=== PATIENT | male | born 1935 | race Two or more races ===

== ENCOUNTER 2023-11-09 11:35 | Inpatient (IN) | payer MEDICARE, OTHER ==
[~2023-11-09] VITALS: Ht 167.6 cm; Wt 68.0 kg
[2023-11-09 12:57] LABS: ALANINE AMINOTRANSFERASE 12 U/L (12-78); ALBUMIN 3.7 g/dL (3.4-5.0); ALKALINE PHOSPHATASE 53 U/L (46-116); ASPARTATE AMINOTRANSFERASE 16 U/L (15-37); BILIRUBIN,DIRECT 0.1 mg/dL (0.0-0.2); BILIRUBIN,TOTAL 0.4 mg/dL (0.2-1.0); CALCIUM, SERUM 9.4 mg/dL (8.5-10.1); CARBON DIOXIDE 32 mmol/L (21-32); CHLORIDE 104 mmol/L (98-107); CREATININE 1.2 mg/dL (0.6-1.3); GLUCOSE 126 mg/dL (74-106); POTASSIUM 4.3 mmol/L (3.5-5.1); SODIUM SERUM 141 mmol/L (136-145); TOTAL PROTEIN, SERUM 7.6 g/dL (6.4-8.2); UREA NITROGEN, BLOOD 36 mg/dL (7-18)
[2023-11-09 12:58] LABS: BASOPHILS % (AUTO) 0.4 % (0.0-2.0); EOSINOPHILS # (AUTO) 0.1 K/uL (0.0-0.7); HEMATOCRIT 40 % (39-51); HEMOGLOBIN 13.1 g/dL (13.5-17.5); LYMPHOCYTES # (AUTO) 1.4 K/uL (0.8-4.8); LYMPHOCYTES % (AUTO) 21.9 % (20.0-44.0); MEAN CORPUSCULAR HEMOGLOBIN 31 PG (26.0-33.0); MEAN CORPUSCULAR HGB CONC 33 g/dl (31.0-36.0); MEAN CORPUSCULAR VOLUME 93 fL (80-96); MONOCYTES # (AUTO) 0.6 K/uL (0.1-1.30); MONOCYTES % (AUTO) 9.3 % (2.0-12.0); NEUTROPHILS # (AUTO) 4.4 K/uL (1.8-8.9); NEUTROPHILS % (AUTO) 66.4 % (43.0-81.0); PLATELET COUNT (AUTO) 192 K/uL (150-450); RED BLOOD CELL COUNT(AUTO) 4.31 MIL/uL (4.5-6.0); RED CELL DISTRIBUTION WIDTH 14.4 % (11.5-15.0); WHITE BLOOD COUNT (AUTO) 6.6 K/uL (4.3-11.0)
[2023-11-09 13:05] LABS: ACETAMINOPHEN <10 ug/ml (10-30); ALCOHOL, BLOOD < 3 mg/dL (0-10); SALICYLATE 0.8 mg/dL (2.8-20.0)
[2023-11-09] MEDS ORDERED: SITA100T PO (14:06)
[2023-11-09] MEDS ORDERED: AMLO5TAB4 PO (14:06)
[2023-11-09] MEDS ORDERED: MONT10TA22 PO (14:06)
[2023-11-09] MEDS ORDERED: CALC-15 PO (14:06)
[2023-11-09] MEDS ORDERED: DIVA125T32 PO (14:06)
[2023-11-09] MEDS ORDERED: NA P133E RC (14:06)
[2023-11-09] MEDS ORDERED: GLYC-30 RC (14:06)
[2023-11-09] MEDS ORDERED: METF500T PO (14:06)
[2023-11-09] MEDS ORDERED: TAMS-12 PO (14:06)
[2023-11-09] MEDS ORDERED: ACET-868 PO (14:06)
[2023-11-09] MEDS ORDERED: DIVA-76 PO (14:06)
[2023-11-09] MEDS ORDERED: ACET650S11 RC (14:06)
[2023-11-09 14:20] LABS: APPEARANCE,URINE CLEAR (CLEAR); BILIRUBIN,URINE NEGATIVE (NEGATIVE); BLOOD, URINE TRACE-INTA Ery/uL (NEGATIVE); COLOR,URINE YELLOW (YELLOW); KETONES,URINE NEGATIVE (NEGATIVE); LEUKOCYTE ESTERASE ,URINE NEGATIVE (NEGATIVE); NITRITE, URINE NEGATIVE (NEGATIVE); PROTEIN,URINE NEGATIVE (NEGATIVE); UGLUCOSE NEGATIVE (NEGATIVE)
[2023-11-09 14:31] LABS: ADD URINE CULTURE NO; BACTERIA,URINE Rare /HPF (None Seen); SQUAMOUS EPITHELIAL CELL,UR None Seen /HPF (None Seen)
[2023-11-09 14:36] LABS: AMPHETAMINE, URINE NEGATIVE (NEGATIVE); BARBITURATE, URINE NEGATIVE (NEGATIVE); BENZODIAZEPINE, URINE NEGATIVE (NEGATIVE); CANNABINOID, URINE NEGATIVE (NEGATIVE); COCCAINE, URINE NEGATIVE (NEGATIVE); OPIATE, URINE NEGATIVE (NEGATIVE); PHENCYCLIDINE SCREEN,URINE NEGATIVE (NEGATIVE)
[2023-11-09 17:30] VITALS: BP 121/100; TEMP 97.8; O2SAT 97
[2023-11-09] MEDS ORDERED: TEMAZEPAM 7.5 MG CAPSULE PO PRN (17:30)
[2023-11-09] MEDS ORDERED: MAG HYDROX/AL HYDROX/SIMETH 30 ML UDC PO PRN (17:30)
[2023-11-09] MEDS ORDERED: MAGNESIUM HYDROXIDE 30 ML UDC PO PRN (17:30)
[2023-11-09] MEDS ORDERED: ACETAMINOPHEN 325 MG TABLET PO PRN ×2 (17:30→18:30)
[2023-11-09] MEDS: BLOOD SUGAR DIAGNOSTIC 1 EACH STRIP IN ONE (18:21)
[2023-11-09] MEDS ORDERED: ACETAMINOPHEN 650 MG/SUPP.RECT RC PRN (18:30)
[2023-11-09] MEDS ORDERED: GLYCERIN CHILD (PED) SUPP 1 SUPP.RECT RC PRN (18:30)
[2023-11-09] MEDS ORDERED: NA PHOS,M-B/NA PHOS,DI-BA 1 EA ENEMA RC PRN (18:30)
[2023-11-09] MEDS: LORAZEPAM 0.5 MG TABLET PO PRN (20:28)
[2023-11-09 21:00] VITALS: BP 123/72; TEMP 98; O2SAT 98
[2023-11-09] MEDS: TAMSULOSIN 0.4 MG CAP.SR.24H PO SCH (22:03)
[2023-11-10 07:31] LABS: ALANINE AMINOTRANSFERASE 9 U/L (12-78); ALBUMIN 3.5 g/dL (3.4-5.0); ALKALINE PHOSPHATASE 51 U/L (46-116); ASPARTATE AMINOTRANSFERASE 13 U/L (15-37); BILIRUBIN,TOTAL 0.6 mg/dL (0.2-1.0); CALCIUM, SERUM 9.3 mg/dL (8.5-10.1); CARBON DIOXIDE 29 mmol/L (21-32); CHLORIDE 104 mmol/L (98-107); GLUCOSE 92 mg/dL (74-106); POTASSIUM 3.8 mmol/L (3.5-5.1); SODIUM SERUM 139 mmol/L (136-145); TOTAL PROTEIN, SERUM 7.1 g/dL (6.4-8.2); UREA NITROGEN, BLOOD 26 mg/dL (7-18)
[2023-11-10 07:34] LABS: THYROID STIMULATING HORMONE 3.99 uIU/mL (0.358-3.74)
[2023-11-10 08:00] VITALS: BP 110/68; TEMP 97.6; O2SAT 98
[2023-11-10] MEDS: Z GUARD REMEDY 4 OZ OINT TP SCH (09:00)
[2023-11-10] MEDS: AMLODIPINE BESYLATE 5 MG TABLET PO SCH (09:27)
[2023-11-10] MEDS: METFORMIN 500 MG TABLET PO SCH (09:27)
[2023-11-10] MEDS: CALCIUM CARB 250MG /VITAMIN D 1 UDTAB PO SCH (09:28)
[2023-11-10] MEDS: Z GUARD REMEDY 4 OZ OINT TP PRN (09:28)
[2023-11-10] MEDS: LINAGLIPTIN 5 MG TABLET PO SCH (13:42)
[2023-11-10] MEDS: LORAZEPAM 0.5 MG TABLET PO PRN (14:09)
[2023-11-10] MEDS ORDERED: DIVALPROEX SODIUM 250 MG TABLET.DR PO SCH (15:00)
[2023-11-10 16:00] VITALS: BP 130/84; TEMP 98.6; O2SAT 95
[2023-11-10] MEDS: DIVALPROEX SODIUM 125 MG CAP.SPRINK PO SCH ×2 (16:44→20:20)
[2023-11-10] MEDS ORDERED: DIVALPROEX SODIUM 125 MG TABLET.DR PO SCH (17:00)
[2023-11-10] MEDS: MONTELUKAST SODIUM (10MG) 10 MG TABLET PO SCH (17:23)
[2023-11-10 17:48] LABS: CREATININE 1.2 mg/dL (0.6-1.3)
[2023-11-10 20:00] VITALS: BP 128/84; TEMP 98; O2SAT 98
[2023-11-11 08:45] VITALS: BP 140/69; TEMP 97.3; O2SAT 98
[2023-11-11 15:47] VITALS: BP 118/76; TEMP 97.9; O2SAT 99
[2023-11-11] MEDS: DIVALPROEX SODIUM 125 MG CAP.SPRINK PO SCH ×2 (17:20→21:12)
[2023-11-11 20:33] VITALS: BP 146/90; TEMP 98.1; O2SAT 98
[2023-11-12 20:45] VITALS: BP 143/73; TEMP 97.8; O2SAT 98
[2023-11-12] MEDS: TEMAZEPAM 7.5 MG CAPSULE PO PRN (21:42)
[2023-11-13 08:00] VITALS: BP 137/67; TEMP 97.9; O2SAT 98
[2023-11-13 16:00] VITALS: BP 152/58; TEMP 98; O2SAT 98
[2023-11-13 21:11] VITALS: BP 146/73; TEMP 98; O2SAT 97
[2023-11-14 19:57] VITALS: BP 118/89; TEMP 98.1; O2SAT 99
[2023-11-15 08:00] VITALS: BP 129/63; TEMP 98.6; O2SAT 97
[2023-11-15 16:00] VITALS: BP 146/69; TEMP 97.9; O2SAT 98
[2023-11-15 20:00] VITALS: BP 142/74; TEMP 98.3; O2SAT 97
[2023-11-16 08:00] VITALS: BP 130/63; TEMP 97.8; O2SAT 96
[2023-11-16] MEDS: DIVALPROEX SODIUM 125 MG CAP.SPRINK PO SCH (09:41)
[2023-11-16 16:00] VITALS: BP 139/75; TEMP 97.9; O2SAT 94
[2023-11-16 20:00] VITALS: BP 123/74; TEMP 98; O2SAT 98
[2023-11-17 08:00] VITALS: BP 103/79; TEMP 97.7; O2SAT 95
[2023-11-17] MEDS ORDERED: risperiDONE 1 MG TABLET PO SCH (11:30)
[2023-11-17 16:00] VITALS: BP 131/83; TEMP 97.6; O2SAT 97
[2023-11-17] MEDS: BENZTROPINE MESYLATE (1 MG) 1 MG TABLET PO SCH (17:03)
[2023-11-17 20:00] VITALS: BP 131/70; TEMP 97.9; O2SAT 96
[2023-11-18 08:00] VITALS: BP 119/63; TEMP 97.6; O2SAT 94
[2023-11-18 16:00] VITALS: BP 140/84; TEMP 97.7; O2SAT 95
[2023-11-18 20:48] VITALS: BP 149/74; TEMP 97.7; O2SAT 96
[2023-11-19 08:00] VITALS: BP 100/65; TEMP 98.1; O2SAT 95
[2023-11-19 16:04] VITALS: BP 150/73; TEMP 98.6; O2SAT 96
[2023-11-19 20:44] VITALS: BP 147/101; TEMP 98.2; O2SAT 98
[2023-11-20 08:00] VITALS: BP 130/66; TEMP 97.9; O2SAT 98
[2023-11-20 16:00] VITALS: BP 100/85; TEMP 98.7; O2SAT 98
[2023-11-20 20:15] VITALS: BP 106/75; TEMP 98.4; O2SAT 98
[2023-11-21 08:00] VITALS: BP 117/64; TEMP 97.6; O2SAT 97
[2023-11-21 16:00] VITALS: BP 118/78; TEMP 97.8; O2SAT 96
[2023-11-21 20:00] VITALS: BP 136/89; TEMP 97.7; O2SAT 95
[2023-11-22 08:00] VITALS: BP 96/53; TEMP 97.7; O2SAT 98
[2023-11-22 16:00] VITALS: BP 134/71; TEMP 97.9; O2SAT 98
[2023-11-23 07:41] LABS: CARBON DIOXIDE 32 mmol/L (21-32); CHLORIDE 109 mmol/L (98-107); CREATININE 1.2 mg/dL (0.6-1.3); GLUCOSE 97 mg/dL (74-106); MAGNESIUM 2.1 mg/dL (1.8-2.4); POTASSIUM 4.1 mmol/L (3.5-5.1); SODIUM SERUM 149 mmol/L (136-145); UREA NITROGEN, BLOOD 37 mg/dL (7-18)
[2023-11-23 08:00] VITALS: BP 109/63; TEMP 97.6; O2SAT 99
[2023-11-23] MEDS: IV D5W 1,000 ML IV ONE (12:07)
[2023-11-23 16:00] VITALS: BP 104/91; TEMP 98; O2SAT 97
[2023-11-23 20:38] VITALS: BP 118/90; TEMP 98.2; O2SAT 95
[2023-11-24 08:00] VITALS: BP 146/80; TEMP 98; O2SAT 96
[2023-11-24 08:15] VITALS: BP 146/80
[2023-11-24 08:20] LABS: CALCIUM, SERUM 9.3 mg/dL (8.5-10.1); CARBON DIOXIDE 29 mmol/L (21-32); CHLORIDE 104 mmol/L (98-107); CREATININE 1.2 mg/dL (0.6-1.3); GLUCOSE 140 mg/dL (74-106); MAGNESIUM 2.2 mg/dL (1.8-2.4); POTASSIUM 4.2 mmol/L (3.5-5.1); SODIUM SERUM 143 mmol/L (136-145); UREA NITROGEN, BLOOD 33 mg/dL (7-18)
== END 2023-11-24 13:30 | DRG 885 ==
LOC: ER 11:42 → EDBD 11:42 → GPS 16:11
PROVIDERS: ADMIT Psychiatry & Neurology Psychosomatic Medicine; ATTEND Student in an Organized Health Care Education/Training Program
DX: F39 Unspecified mood [affective] disorder (principal); F02.83 Dementia in other diseases classified elsewhere, unspecified severity, with mood disturbance; G30.9 Alzheimer's disease, unspecified; N40.0 Benign prostatic hyperplasia without lower urinary tract symptoms; J44.9 Chronic obstructive pulmonary disease, unspecified; Z79.84 Long term (current) use of oral hypoglycemic drugs; Z85.828 Personal history of other malignant neoplasm of skin; Z91.199 Patient's noncompliance with other medical treatment and regimen due to unspecified reason; D64.9 Anemia, unspecified; E11.9 Type 2 diabetes mellitus without complications; E86.0 Dehydration; I10 Essential (primary) hypertension; Z73.6 Limitation of activities due to disability; R41.9 Unspecified symptoms and signs involving cognitive functions and awareness
CPT/HCPCS: 36415; 71045-TC; 80048-TC; 80053-TC; 80061-TC; 80076-TC; 80164-TC; 81001; 82565-TC; 82962-TC; 83735-TC; 84439-TC; 84443-TC; 85025-TC; 87081-TC; 97110-TC; 97112-TC; 97116-TC; 97530-TC; A6253; G0480; J7070